=== PATIENT | male | born 1995 | race Two or more races ===

== ENCOUNTER 2024-05-01 07:36 | Emergency (ER) | payer OTHER ==
[~2024-05-01] VITALS: Ht 177.8 cm; Wt 72.6 kg
[2024-05-01] MEDS ORDERED: ORPHENADRINE CITRATE 30 MG/ML AMPUL ONE (09:21)
[2024-05-01] MEDS ORDERED: ORPHENADRINE CITRATE 30 MG/ML AMPUL IM ONE (09:30)
[2024-05-01] MEDS ORDERED: NORFLEX100MG PO (10:28)
[2024-05-01] MEDS ORDERED: BACITRACIN-POL3.5 GM OP (10:28)
[2024-05-01] MEDS ORDERED: KETO10TA2 PO (10:28)
== END 2024-05-01 10:39 | disposition home or self-care (01) ==
LOC: ER 07:37
DX: S50.312A Abrasion of left elbow, initial encounter (principal); S80.212A Abrasion, left knee, initial encounter; V23.49XA Other motorcycle driver injured in collision with car, pick-up truck or van in traffic accident, initial encounter; Y93.I9 Activity, other involving external motion; Y92.413 State road as the place of occurrence of the external cause; S09.8XXA Other specified injuries of head, initial encounter; S29.9XXA Unspecified injury of thorax, initial encounter